=== PATIENT | male | born 1990 | race African-American/Black ===

== ENCOUNTER 2018-10-19 16:18 | Emergency (ER) | payer SELFPAY ==
[~2018-10-19] VITALS: Ht 175.3 cm; Wt 105.0 kg
[2018-10-19 17:40] VITALS: BP 131/87
== END 2018-10-19 17:40 | disposition home or self-care (01) | DRG 951 ==
LOC: ED 16:18
DX: Z20.2 Contact with and (suspected) exposure to infections with a predominantly sexual mode of transmission (principal)